=== PATIENT | male | born 1990 | race Asian ===

== ENCOUNTER 2024-02-18 04:43 | Day surgery (SDC) | payer BC, OTHER ==
[2024-02-17 09:21] VITALS: BMI 42.5
[2024-02-18 08:31] VITALS: RESP 18; TEMP 97.6
[2024-02-18 09:07] VITALS: BP 120/75; PULSE 90
== END 2024-02-18 09:07 | disposition home or self-care (01) ==
LOC: JASU-ENDO 04:43
PROVIDERS: ATTEND Internal Medicine Gastroenterology
PROC: 0DBQ8ZX Excision of Anus, Via Natural or Artificial Opening Endoscopic, Diagnostic (ICD-10-PCS; principal; 2024-02-18 08:00)
DX: K62.0 Anal polyp (principal); K64.8 Other hemorrhoids
CPT/HCPCS: 88305-TC